=== PATIENT | male | born 2005 | race Caucasian/White ===

== ENCOUNTER 2025-01-09 18:23 | Emergency (ER) | payer OTHER, SELFPAY ==
--- NOTE | ~2025-01-09 | CT_ITS ---
CLINICAL HISTORY: abd pain CT abdomen and pelvis with contrast Comparison: CT - CT ABDOMEN PELVIS W IV CON - 01/09/25 19:21 EDT Findings: Examination is degraded by motion artifact. The lung bases are clear. The gallbladder and solid organs are within normal limits. No renal stones. No bowel obstruction, pneumoperitoneum, or pneumatosis. Multiple mildly prominent subcentimeter mesenteric lymph nodes are present. Small amount of free fluid in the pelvis is present.Appendix is not seen. The bones are intact. IMPRESSION: 1. Limited examination demonstrating a small amount of free pelvic fluid, suggestive of underlying infectious or inflammatory process. 2. Findings consistent with mesenteric adenitis in the appropriate clinical setting. This document has been electronically signed by: Herminia Botello MD on 01/09/2025 20:41:30
[2025-01-09 18:38] VITALS: BP 158/61; PULSE 98; RESP 14; TEMP 37.1; O2SAT 100; BMI 18.3
--- NOTE | 2025-01-09 18:39 | ED.GENADULT ---
HPI - General Adult General Chief complaint: Abdominal Pain Stated complaint: right side leg pain, vomiting,fever Time Seen by Provider: 01/09/25 20:15 History of Present Illness HPI narrative: Patient is a 19-year-old male presents today with having abdominal pain. It is worse over the right side. Associated with some nausea. Patient also complaining of pain going down to the leg. There is no fever no chills. There is decreased appetite. Patient is from home. The symptoms gotten worse over the last 2 days. No cough no congestion or upper respiratory symptoms. No diaphoresis. Related Data Allergies Allergy/AdvReac Type Severity Reaction Status Date / Time No Known Allergies Allergy Verified 01/09/25 18:40 Review of Systems Review of Systems: Positive abdominal pain Yes all other systems are reviewed and are negative [facility] Past Medical History Attestation statement: The following information was validated with the patient. Social History Social History Alcohol intake: never Smoked in Last 30 Days: No Use of substances other than those prescribed or required for medical reasons: No Advance Directives: No Advance Directives Information Provided: Yes Physical Exam ED Exam Exam: Appearance: Alert. Oriented X3. No acute distress. Eyes: Pupils equal, round and reactive to light. ENT: Pharynx normal. Neck: Normal inspection. Neck supple. No lymph nodes noted. No crepitus CVS: Normal heart rate and rhythm. Pulses normal. Normal S1 and S2 Respiratory: No respiratory distress. Breath sounds normal. No Wheezing. No rales Abdomen: Mild right-sided tenderness no rebound or guarding. Skin: Skin warm and dry. Normal skin color. Normal skin turgor. Extremities: No lower extremity edema. Neurovascular intact to all extremities. No Lacerations. No Rash Neuro: Oriented X 3. No motor deficit. No sensory deficit. Moving all extermities. No slurred speech Vital Signs: Vital Signs - 24 hr 01/09/25 18:38 01/09/25 20:20 01/09/25 22:12 Temperature 98.8 F 97.9 F 98.3 F Pulse Rate 98 102 H 94 Respiratory Rate 14 16 16 Blood Pressure 158/61 H 128/73 131/88 Pulse Oximetry 100 99 98 Oxygen Delivery Method Room Air Room Air Room Air 01/09/25 23:16 01/09/25 23:25 Temperature 98.7 F 98.7 F Pulse Rate 85 85 Respiratory Rate 18 18 Blood Pressure 134/86 134/86 Pulse Oximetry 98 Oxygen Delivery Method Room Air BMI result Body Mass Index 18.3 Course Course Course Narrative: Rapid medical examination performed in triage by Belinda Fregoso PA-C. Patient is a 19 year old assigned male at presenting to the emergency department with right sided lower abdominal pain and leg pain. Detailed physical exam and review of systems are deferred to the auto electrical technician. Labs, imaging, and swabs ordered. Patient placed back in the waiting room pending room availability and results. Medications Administered Discontinued Medications Generic Name Dose Route Start Last Admin Trade Name Freq PRN Reason Stop Dose Admin Al Hydroxide/Mg Hydroxide 30 ml 01/09/25 22:15 01/09/25 23:07 Magnesium Hydrox/Alum Hydrox 30 Ml Oral.Susp PO 01/09/25 22:16 Not Given ONCE ONE Sodium Chloride 1,000 mls @ 999 mls/hr 01/09/25 18:45 01/09/25 21:47 Ns IV 01/09/25 19:45 Infused .Q1H1M CELI Infusion Ketorolac Tromethamine 15 mg 01/09/25 18:43 01/09/25 19:10 Ketorolac Tromethamine 15 Mg/Ml Vial IVPUSH 01/09/25 18:44 15 mg ONCE ONE Administration Medical Decision Making Medical Decision Making [facility] Narrative: Positive right-sided abdominal pain. No acute distress. CT scan of the abdomen was grossly negative for any acute evidence of appendicitis. No obstruction no abscess no perforation. Patient is LFTs are normal. White count is normal. Urine is still pending. CT scan per radiology's interpretation was grossly negative for gross appendicitis. The appendix was not visualized. I discussed the finding with a 2nd radiologist. Question mesenteric adenitis. Patient's white count is normal. I discussed the case with surgery felt less likely to be appendicitis had a long discussion with mom with drying oven tender present offer additional CT scan with oral and IV contrast at this time they did not want that. Already had 1 CTA already. Wants to go home. Patient's LFTs are normal. No evidence for biliary disease no evidence for biliary disease on CT patient's urine showed no signs of infection no signs of kidney stone will discharge patient home close follow-up advised. Differential Diagnosis Differential Diagnoses: The differential diagnosis associated with the presentation includes Appendicitis, kidney stone, UTI Admission/Observation Consideration of admission/observation: Escalation of care including admission/observation considered Consult Healthcare Provider Management of the patient was discussed with: [employer] (2nd radiologist, surgery Dr. Rivera) Lab Data MDM Lab Attestation statement: I reviewed the patient's lab results. 01/09/25 19:03 01/09/25 19:03 Labs: Lab Results 01/09/25 01/09/25 Range/Units 19:03 22:11 WBC 9.6 (4.8-10.8) X10*3/uL RBC 4.75 (4.60-5.80) X10*6/uL Hgb 14.5 (14.0-18.0) g/dl Hct 40.5 L (42.0-52.0) % MCV 85.3 (80.0-98.0) fL MCH 30.5 (27.0-33.0) pg MCHC 35.8 (31.0-36.0) g/dl RDW 11.6 (11.0-16.0) % Plt Count 234 (160-400) X10*3/uL MPV 10.2 (9.4-12.4) fL Immature Gran % (Auto) 0.2 (0.0-0.4) % Neut % (Auto) 79.5 H (45-73) % Lymph % (Auto) 15.4 L (20-40) % [place] % (Auto) 4.2 (2-11) % Eos % (Auto) 0.2 (0-4) % Baso % (Auto) 0.5 (0-2) % Lymph # (Auto) 1.5 (1.2-4.9) X10*3/uL [place] # (Auto) 0.4 (0.1-1.2) X10*3/uL Eos # (Auto) 0.0 (0.0-0.4) X10*3/uL Baso # (Auto) 0.1 (0.0-0.2) X10*3/uL Abs Immat Gran (auto) 0.02 (0.00-0.03) X10*3/uL Absolute Neuts (auto) 7.6 (2.0-8.3) x10*3/uL Absolute Nucleated RBC 0.000 (0.0-0.012) X10*3/uL Nucleated RBC % (auto) 0.0 (0.0-0.2) /100WBC Sodium 143 (135-145) mmol/L Potassium 3.6 (3.3-5.1) mmol/L Chloride 108 (96-108) mmol/L Carbon Dioxide 23 (22-29) mmol/L Anion Gap 16 (12-20) BUN 10 (9-16) mg/dL Creatinine 0.99 (0.5-1.4) mg/dL Estim Creat Clear Calc 76.9 Estimated GFR > 60 Random Glucose 97 (60-115) mg/dL Calcium 10.3 H (8.4-10.2) mg/dL Magnesium 2.0 (1.6-2.6) mg/dL Total Bilirubin 0.5 (0.0-1.0) mg/dL AST 30 (5-37) U/L ALT 31 (0-40) U/L Alkaline Phosphatase 98 (39-117) U/L Total Protein 8.7 H (6.5-8.0) g/dL Albumin 5.8 H (3.5-5.0) g/dL Urine Color Yellow Urine Appearance Clear Urine pH 7.0 (5.0-9.0) Ur Specific [place] >= 1.030 H (1.005-1.025) Urine Protein Negative (Neg-Trace) mg/dL Urine Glucose (UA) Negative (Negative) mg/dL Urine Ketones Negative (Negative) mg/dL Urine Blood Negative (Negative) Urine Nitrite Negative (Negative) Ur Leukocyte Esterase Negative (Negative) Radiology Impression Discussion of test interpretation with radiology: I discussed test interpretation with the radiologist and I have reviewed the radiologist's reading. Chronic Conditions History of congenital disorder Social Determinants Patient?s care significantly limited by Social Determinants of Health including: Problems related to primary support group Discharge Plan Discharge Clinical Impression: Abdominal pain Patient Disposition: Home, Self-Care Instructions: Abdominal Pain (ED) Additional Instructions: Worsened abdominal pain or if you change your mind about getting a 2nd CT scan with oral and IV contrast please come back to the emergency department. Referrals: [facility] [Physician, Medical] - 01/11/25 Print Language: Mohawk
[2025-01-09 19:13] LABS: MANUAL DIFF FLAG NO
[2025-01-09 19:28] LABS: Alanine Aminotransferase 31 U/L (0-40); Albumin Level 5.8 g/dL (3.5-5.0); Alkaline Phosphatase 98 U/L (39-117); Anion Gap 16 (12-20); Aspartate Amino Transferase 30 U/L (5-37); Blood Urea Nitrogen 10 mg/dL (9-16); Calcium 10.3 mg/dL (8.4-10.2); Carbon Dioxide 23 mmol/L (22-29); Chloride 108 mmol/L (96-108); Creatinine Clr Calc Pharmacy 76.9; Estimated Glomerular Filt Rate > 60; Magnesium 2.0 mg/dL (1.6-2.6); Potassium 3.6 mmol/L (3.3-5.1); Sodium 143 mmol/L (135-145); Total Protein 8.7 g/dL (6.5-8.0)
[2025-01-09 19:30] LABS: Hematocrit 40.5 % (42.0-52.0); Hemoglobin 14.5 g/dl (14.0-18.0); Imm Gran Abs Auto 0.02 X10*3/uL (0.00-0.03); Imm Gran Pct Auto 0.2 % (0.0-0.4); Lymphocytes Absolute Auto 1.5 X10*3/uL (1.2-4.9); Mean Corpuscular HGB Conc 35.8 g/dl (31.0-36.0); Mean Corpuscular Hemoglobin 30.5 pg (27.0-33.0); Mean Corpuscular Volume 85.3 fL (80.0-98.0); NRBC Abs Auto 0.000 X10*3/uL (0.0-0.012); NRBC Pct Auto 0.0 /100WBC (0.0-0.2); Platelet Count 234 X10*3/uL (160-400); Red Blood Count 4.75 X10*6/uL (4.60-5.80); White Blood Count 9.6 X10*3/uL (4.8-10.8)
--- OUTSIDE RECORDS SUMMARY | 2025-01-09 19:44 | XMS_ITS | Clinical Summary ---
Author Organization [facility] Address [address] [place] [address] Care Team Providers Care Hourly Associate Name Role Phone MarcellusQi van Primary Care Provider Dilma dillard Allergies No known active allergies Medications No known medications Encounters Date Type Department Care Team Description 11/15/2024 9:45 AM EDT Office Visit [address] [address] Sammy Ibarra MD Adolescent idiopathic scoliosis of thoracolumbar region 11/15/2024 9:30 AM EDT - 11/15/2024 11:59 PM EDT Hospital Encounter [address] [address] Adolescent idiopathic scoliosis of thoracolumbar region Discharge Disposition: Discharged to Home or Self Care (Routine Discharge) 11/15/2024 Travel from Last 3 Months Social History Tobacco Use Types Packs/Day Years Used Date Smoking Tobacco: Unknown Tobacco Cessation:Counseling Given: Not Answered Sex and Gender Information Value Date Recorded Sex Assigned at Male 02/10/2022 8:25 PM EDT Legal Sex Male 8:25 PM EDT Gender Identity Not on file Sexual Orientation Not on file Last Filed Vital Signs Vital Sign Reading Time Taken Comments Blood Pressure - - Pulse - - Temperature - - Respiratory Rate - - Oxygen Saturation - - Inhaled Oxygen Concentration - - Weight 44.5 kg (98 lb 1.7 oz) 11/15/2024 10:07 A M EDT Height 158.1 cm (5' 2.24 ) 11/15/2024 10:07 AM E DT Body Mass Index 17.8 11/15/2024 10:07 AM EDT Plan of Treatment Upcoming Encounters Date Type Department Care Team (Late st Contact Info) Description 05/09/2025 10:30 AM EST Office Visit [address] [place] [address] Sammy Ibarra MD [address] [place] [address] Procedures Procedure Name Priority Date/Time Associated Diagnosis Comments XR ENTIRE SPINE 1 VW Routine 11/15/2024 9:59 AM EDT Adolescent idiopathic scoliosis of thoracolumbar region from Last 3 Months Results * XR entire spine 1 view (11/15/2024 9:59 AM EDT) Anatomical Region Laterality Modality Spine Digital Radiogra phy Sammy Ibarra MD IMG XR PROCEDURES Final Result from Last 3 Months Insurance [employer] Care Teams Hourly Associate Relationship Specialty Start Date End Date Qi Chavez DO [address] [place] [address] PCP - General 01/30/22
--- OUTSIDE RECORDS SUMMARY | 2025-01-09 19:44 | XMS_ITS | Clinical Summary ---
Author Organization [facility] Address [address] [place] [address] Phone Care Team Providers Care Plate Developer Name Role Phone Physician, No Pcp Primary Care Provider Unavaila ble Social History Tobacco Use Types Packs/Day Years Used Date Smoking Tobacco: Never Assessed Sex and Gender Information Value Date Recorded Sex Assigned at Male 08/24/2024 3:39 PM EDT Legal Sex Male 3:42 PM EDT Gender Identity Male 08/24/2024 3:39 PM EDT Sexual Orientation Straight 08/24/2024 3: 39 PM EDT Plan of Treatment Health Maintenance Due Date Last Done Comments Meningococcal B Vaccine (1 of 2 - Standard) 2021 Annual Well Child Visit (3-21 years old) 02/27/2024 HIV Screening 02/27/2024 Hepatitis C Screening 02/27/2024 Social Influencers of Health Screening 02/27/2024 Depression Screening 05/04/2024 COVID-19 Vaccine ( season) 2025 Influenza Vaccine (#1) 2025 3, 01/07/2012, 01/30/2010 DTaP,Tdap,and Td Vaccines (8 - Td or Tdap) 08/06/2033 08/07/2023, 03/11/2017, 01/30/2010, Additional history exists Hepatitis B Vaccines Completed 07/20/2006, 2005, 2005 HIB Vaccines Completed 01/15/2007, 04/03, 02/25/2006, Additional history exists Pneumococcal Vaccine: Pediatrics (0 to 5 Years) and At-Risk Patients (6 to 49 Years) Completed 01/15/2007, 04/14/2006, 02/25/2006, Additional history exists Hepatitis A Vaccines Completed 08/03/2007, 01/16/20 07 IPV Vaccines Completed 01/30/2010, 07/02, 02/25/2006, Additional history exists MMR Vaccines Completed 01/30/2010, 01/15/2007 Varicella Vaccines Completed 01/30/2010, 0 07/05/2008, 01/15/2007 HPV Vaccines Completed 11/26/2017, 03/11/2017 Meningococcal ACWY Vaccine Completed 12/03/2021, RSV Immunization Patients Under 20 months Aged Out No longer eligible based on patient's age to complete this topic Insurance [employer] [employer] Care Teams Plate Developer Relationship Specialty Start Date End Date Physician, No Pcp PCP - General 08/24/24
[2025-01-09 20:20] VITALS: BP 128/73; PULSE 102; RESP 16; TEMP 36.6; O2SAT 99
[2025-01-09 22:12] VITALS: BP 131/88; PULSE 94; RESP 16; TEMP 36.8; O2SAT 98
[2025-01-09 22:21] LABS: Appearance Urine Clear; Glucose Urine UA Negative (Negative); PH 7.0 (5.0-9.0); Specific Gravity - Urine >= 1.030 (1.005-1.025)
[2025-01-09 23:16] VITALS: BP 134/86; PULSE 85; RESP 18; TEMP 37.1; O2SAT 98
[2025-01-09 23:25] VITALS: BP 134/86; PULSE 85; RESP 18; TEMP 37.1
--- NOTE | 2025-01-09 23:36 | PC.NURSE ---
RN assumed care at 2300 at which time MD Encarnacionu was at bedside with staff scientist discussing the plan of care with the patient's mother/advocate. The pt was found laying in the stretcher, awake, alert, skin warm and dry and without acute distress or outward s/s of discomfort noted. 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 Mae discussed alternative CT with oral contrast as well as why it would not be ideal to have 2 scans within 24 hours. Mother agreed that repeat CT would not be ideal and agreed to be dsicharged home with the plan to return immediately if the pain or other symptoms worsen.
[2025-01-11 06:38] LABS: Lyme Abs Screen <0.90 index
[2025-01-11 21:57] LABS: A. Phagocytphilium DNA,RT-PCR NOT DETECTED (NOT DETECTED); Babesia Microti DNA, RT-PCR NOT DETECTED (NOT DETECTED); Borrelia Miyamotoi,DNA RT-PCR NOT DETECTED (NOT DETECTED); E.Chaffeensis DNA RT-PCR NOT DETECTED (NOT DETECTED); Lyme(Borrelia ssp)DNA RT-PCR NOT DETECTED (NOT DETECTED)
== END 2025-01-09 23:35 | disposition home or self-care (01) ==
PROVIDERS: Physician Assistant Medical; Emergency Provider Emergency Medicine Emergency Medical Services
DX: R10.9 Unspecified abdominal pain (principal); R11.0 Nausea; Z63.9 Problem related to primary support group, unspecified
CPT/HCPCS: 36415; 74177; 80053; 81003; 83735; 85025; 86617; 86618; 87468; 87469; 87478; 87484; 87798; 96361; 96374; 99285; J1885

== ENCOUNTER → 2025-01-09 18:40 | Outpatient (BNV) | payer OTHER, SELFPAY | PROVIDERS: Emergency Provider Emergency Medicine Emergency Medical Services; Visit Provider Radiology Diagnostic Radiology | DX: R10.9 Unspecified abdominal pain (principal) | CPT/HCPCS: 74177 ==